=== PATIENT | female | born 1985 | race Two or more races ===

== ENCOUNTER 2018-03-17 01:15 | Emergency (ER) | payer BC, OTHER ==
[2018-03-17 02:21] LABS: BASOPHILS 0.8 % (0-2); HEMOGLOBIN 10.8 g/dL (12-16); IMMATURE GRANULOCYTES 0.1 % (0-5); LYMPHOCYTES 25.1 % (15-50); MCH 26.1 pg (26.0-34.0); MCHC 32.7 g/dL (31.0-37.0); MCV 79.7 fL (80.0-100.0); MEAN PLATELET VOLUME 10.2 fL (7.4-10.4); MONOCYTES 3.9 % (2-11); NEUTROPHILS 69.1 % (40-80); PLATELET COUNT 216 10x3/uL (130-400); RBC 4.14 10x6/uL (4.00-5.40); RDW 13.7 % (11.5-14.5); WBC 9.2 10x3/uL (4.8-10.8)
[2018-03-17 02:32] LABS: HCG SERUM NEGATIVE (NEGATIVE)
[2018-03-17 02:36] LABS: ALKALINE PHOSPHATASE 66 U/L (46-116); ALT (SGPT) 38 U/L (10-68); BILIRUBIN - TOTAL 0.29 mg/dL (0.2-1.3); CALC OSMOLALITY 278 mosm/kg (275-300); CALCIUM 8.6 mg/dL (8.5-10.1); CARBON DIOXIDE 27.8 mmol/L (21.0-32.0); CHLORIDE - SERUM 103 mmol/L (98-107); CREATININE - SERUM 0.7 mg/dL (0.6-1.3); GLUCOSE 108 mg/dL (74-106); POTASSIUM - SERUM 3.7 mmol/L (3.5-5.1); PROTEIN - SERUM 7.5 g/dL (6.4-8.2); SODIUM 140 mmol/L (136-145); UREA NITROGEN 9 mg/dL (7-18); eGFR NON AFRICAN AMERICAN > 90 mL/min (90-120)
[2018-03-17 02:56] LABS: APPEARANCE CLOUDY (CLEAR); BILIRUBIN NEGATIVE (NEGATIVE); COLOR YELLOW (YELLOW); GLUCOSE NEGATIVE (NEGATIVE); KETONE NEGATIVE (NEGATIVE); NITRITE NEGATIVE (NEGATIVE); PROTEIN 1+ mg/dL (NEGATIVE); SPECIFIC GRAVITY 1.005 (1.005-1.020); UROBILINOGEN NORMAL (NORMAL)
[2018-03-17 02:57] LABS: BACTERIA MODERATE /hpf (NONE SEEN); MUCUS <1+ /lpf (NONE SEEN); RED CELLS - URINE 0-5 /hpf (0-5); WHITE CELLS - URINE 0-5 /hpf (0-5)
== END 2018-03-17 04:52 | disposition home or self-care (01) ==
LOC: D.ER 01:15
PROVIDERS: Family Medicine
DX: N83.209 Unspecified ovarian cyst, unspecified side (principal)

== ENCOUNTER 2018-12-04 22:48 | Emergency (ER) | payer OTHER ==
[~2018-12-04] VITALS: Ht 170.2 cm; Wt 59.1 kg
[2018-12-04 23:01] VITALS: Ht 170.2 cm; Wt 59.1 kg
[2018-12-04] MEDS ORDERED: ZOFRAN ODT4 MG/UDTAB PO (23:32)
[2018-12-05 00:12] VITALS: BP 110/63
== END 2018-12-05 00:12 | disposition home or self-care (01) ==
LOC: D.ER 22:48
DX: R11.10 Vomiting, unspecified (principal); R10.9 Unspecified abdominal pain

== ENCOUNTER 2019-09-05 08:00 | Outpatient (CLI) | payer OTHER ==
[2018-12-04 23:01] VITALS: BMI 20.4
[~2019-09-05 08:00] MED LIST: ZOFRAN ODT4 MG/UDTAB PO
== END 2019-09-05 23:59 | disposition home or self-care (01) ==
LOC: D.MAMMO 08:00
PROVIDERS: ATTEND Student in an Organized Health Care Education/Training Program
DX: N64.3 Galactorrhea not associated with childbirth (principal)

== ENCOUNTER → 2019-09-08 12:34 | Outpatient (CLI) | payer OTHER ==
[2018-12-04 23:01] VITALS: BMI 20.4
== END | disposition home or self-care (01) ==
LOC: D.MRI 12:34
PROVIDERS: ATTEND Student in an Organized Health Care Education/Training Program
DX: E22.1 Hyperprolactinemia (principal)

== ENCOUNTER 2021-05-15 11:51 | Outpatient (CLI) | payer OTHER ==
[2020-12-17 08:15] VITALS: BMI 25.2
[~2021-05-15 11:51] MED LIST changes: +MACROBID100 MG PO
[2021-05-15 12:51] VITALS: BP 106/58
[2021-05-15 15:06] LABS: BILIRUBIN NEGATIVE (NEGATIVE); KETONE 2+ mg/dL (< 1+); NITRITE NEGATIVE (NEGATIVE); PH 6.5 (5.0-8.0); UROBILINOGEN NORMAL mg/dL (< 2)
== END 2021-05-15 15:14 ==
LOC: D.LABREF 11:51 → D.LDO 11:51
PROVIDERS: ATTEND Student in an Organized Health Care Education/Training Program
DX: O24.419 Gestational diabetes mellitus in pregnancy, unspecified control (principal)

== ENCOUNTER 2021-05-17 14:07 | Outpatient (CLI) | payer OTHER ==
[2020-12-17 08:15] VITALS: BMI 25.2
[2021-05-17 14:15] VITALS: BP 104/63
== END 2021-05-17 14:48 ==
LOC: D.LDO 14:07
PROVIDERS: ATTEND Student in an Organized Health Care Education/Training Program
DX: O26.893 Other specified pregnancy related conditions, third trimester (principal); Z3A.34 34 weeks gestation of pregnancy

== ENCOUNTER 2021-05-20 14:44 | Outpatient (CLI) | payer OTHER ==
[2020-12-17 08:15] VITALS: BMI 25.2
== END 2021-05-20 15:19 | disposition home or self-care (01) ==
LOC: D.LABREF 14:44 → D.LDO 14:44
PROVIDERS: ATTEND Student in an Organized Health Care Education/Training Program
DX: O24.419 Gestational diabetes mellitus in pregnancy, unspecified control (principal)

== ENCOUNTER 2021-05-23 14:24 | Outpatient (CLI) | payer OTHER ==
[2020-12-17 08:15] VITALS: BMI 25.2
== END 2021-05-23 15:55 | disposition home or self-care (01) ==
LOC: D.LDO 14:24
PROVIDERS: ATTEND Student in an Organized Health Care Education/Training Program
DX: O24.419 Gestational diabetes mellitus in pregnancy, unspecified control (principal)

== ENCOUNTER 2021-05-27 14:35 | Outpatient (CLI) | payer OTHER ==
[2020-12-17 08:15] VITALS: BMI 25.2
== END 2021-05-27 15:25 | disposition home or self-care (01) ==
LOC: D.LDO 14:35
PROVIDERS: ATTEND Student in an Organized Health Care Education/Training Program
DX: O24.419 Gestational diabetes mellitus in pregnancy, unspecified control (principal)